=== PATIENT | female | born 1940 | race Caucasian/White ===

== ENCOUNTER 2023-11-22 08:22 | Outpatient (RCR) | payer SELFPAY | END 2023-11-22 23:59 | disposition home or self-care (01) | LOC: ROT 08:22 | PROVIDERS: ATTENDING PHYSICIAN Family Medicine | DX: Z02.4 Encounter for examination for driving license (principal) ==

== ENCOUNTER 2023-12-28 13:57 | Emergency (ER) | payer OTHER, MEDICARE, SELFPAY ==
[2023-12-28 14:05] VITALS: BP 177/93
--- NOTE | 2023-12-28 15:21 | ED.GENMED ---
History of Present Illness
General
Chief Complaint: Musculo-Skeletal Complaint
Source: patient
Time Seen by Provider: 12/28/23 15:07
Travel History
Have you had any contact with someone who has COVID-19?: No
Do you have any symptoms of coronavirus? Fever > 100 degrees, chills, cough, shortness of breath, sore throat, loss of taste or smell, muscle aches, or headache?: No
History of Present Illness
History of Present Illness:
83-year-old female with past medical history of GERD, asthma, hypothyroidism presenting to the emergency department for evaluation after she has been dealing with pain to her right shoulder since the end of June when she had an accidental fall.
Patient states that she has had pain to this area daily but it has been getting worse over the last few weeks prompting her to come to the ER today. Patient states she mainly came to the ER today because if she needed an MRI she knew she would need
an x-ray prior to getting the more advanced imaging. She has not seen anybody else medically for this injury. She has been taking Tylenol with some relief. She states shoulder abduction and forward flexion seem to bother her shoulder the most.
Past History
Past History
ED Past Medical History: Asthma, GERD and Hypothyroidism; Negative HTN
ED Past Surgical History: Gynecological, Orthopedic and Tonsilectomy
Social History
Tobacco: Non-smoker
Alcohol: Occasional
Drug: None
Personal:
Living: with family
Employment: Retired
Review of Systems
Review of Systems
All Other Systems: ROS reviewed and negative except as documented in HPI and ROS
Phy Exam
Physical Exam
Physical Exam:
GENERAL: Alert , in no apparent distress
EYE: conjunctiva clear
Head: Normocephalic atraumatic
NECK: Supple,
ENT: mmm.
LUNGS: no acute respiratory distress
NEUROLOGICAL: Alert and oriented
SKIN: Warm and dry, skin intact.
MUSCULOSKELETAL: Right upper extremity: No obvious deformity, erythema, edema, ecchymosis, abrasions or lacerations. Patient does allow for full active and passive range of motion of the right shoulder but states she gets pain at about 90 degrees
with forward flexion as well as abduction. There is some tenderness over the lateral aspect of the proximal humerus as well as within the posterior portion of the proximal scapula. Easily palpable radial pulse. Cap refill less than 2 seconds.
Sensation grossly intact to light touch throughout. Remainder of extremity is within normal limits and has normal range of motion without pain
PSYCH: Normal and appropriate interaction.
Course
Orders/Labs/Results
Orders:
Orders
12/28/23 14:06
Shoulder, Right, Trauma [CR Shoulder, Trauma - Right] Urgent
Comment:
Reason For Exam: shoulder injury in june
Vital Signs
Initial and Last Documented VS:
Initial Vital Signs
Temp Pulse Resp BP Pulse Ox
98.9 F 97 17 177/93 99
12/28/23 14:05 12/28/23 14:05 12/28/23 14:05 12/28/23 14:05 12/28/23 14:05
Last Documented Vital Signs
Temp Pulse Resp BP Pulse Ox
98.9 F 97 17 177/93 99
12/28/23 14:05 12/28/23 14:05 12/28/23 14:05 12/28/23 14:05 12/28/23 14:05
MDM/Problems Addressed
Differential Diagnosis Includes:
Sprain, contusion, minimal concern for fracture or dislocation given longevity. Labral injury, rotator cuff injury
MDM/Problems Addressed:
83-year-old female presenting emergency department for evaluation of right shoulder pain over the last few months. Symptoms not really any different today however patient states pain has been worsening over the last couple of weeks. X-ray findings
were noted for no acute fracture or dislocation but suspected osteopenia. Explained to patient that she would likely need to follow-up with orthopedics for further evaluation. Continue Tylenol for pain as needed as patient states she is unable to
take NSAIDs. She will be given information for orthopedics to follow-up and is otherwise stable for discharge home.
*Radiology
Radiology exam reviewed: preliminary read by ED provider (No fracture) and radiology read reviewed
*Pulse Oximetry
Patient hypoxic: no
*Critical Care Note
Total Time (30-74mins, 75-104mins- exclusive of procedures): Not Applicable
ED Attending Note
-
Portions of this chart may have been created with voice recognition software.� Occasional wrong word or��sound alike� substitutions may have occurred due to the inherent limitations of voice recognition software.
Discharge Plan
Departure
Patient Disposition: Home (Routine Discharge)
Date of Disposition: 12/28/23
Time of Disposition: 15:21
Patient with high blood pressure during this ER visit?: Yes
Discharge Problem:
Right shoulder pain
Instructions: Shoulder Pain ED
Prescriptions:
No Action
B Tonic 6
1 tab PO BID
Betoptic S 0.25 % Drops,Suspension
1 drp BOTH EYES BID
brinzolamide [Azopt] 1 % Drops,Suspension
1 drp BOTH EYES BID
psyllium Packet
1 packet PO TID
valacyclovir 500 mg Tablet
500 mg PO DAILYPRN PRN (Reason: fever sore)
cyanocobalamin (vitamin B-12) 500 mcg Tablet
500 mcg PO DAILY
pantoprazole 40 mg Tablet,Delayed Release (Dr/Ec)
40 mg PO BID
Premarin 0.625 mg/gram Cream
0.625 mg vaginal TH
Hold Instructions: Resume on 09/20/23. Only resume this medication if and only if your primary care provider and neurologist outpatient say you can resume this medication, as you have had a stroke
levothyroxine [Synthroid] 125 mcg Tablet
125 mcg PO DAILY AT 0700
Premarin 0.625 mg Tablet
0.625 mg PO DAILY
Hold Instructions: Resume on 09/20/23. Only resume this medication if and only if your primary care provider and neurologist outpatient say you can resume this medication, as you have had a stroke
docusate sodium [Colace] 100 mg Capsule
100 mg PO DAILY
albuterol sulfate [Ventolin HFA] 90 mcg/actuation Hfa Aerosol Inhaler
2 puff INHALATION DAILYPRN PRN (Reason: asthma)
doxycycline hyclate 20 mg Tablet
20 mg PO BID
Patient Comments:
07/23/23 filled on 07/04/23 #60
vitamin E 268 mg (400 unit) Capsule
268 mg PO DAILY
fluticasone propionate [Flovent HFA] 110 mcg/actuation Hfa Aerosol Inhaler
2 puff INHALATION DAILYPRN PRN (Reason: asthma)
erythromycin with ethanol [Erygel] 2 % Gel
1 applic TOPICAL BID
Patient Comments:
07/23/23 patient applies gel to face for rosacea
cyclosporine [Restasis] 0.05 % Dropperette
1 drp BOTH EYES BID
magnesium oxide 400 mg magnesium Tablet
400 mg PO DAILY
Protopic
1 drp ophthalmic (eye) BID
Rx Instructions:
both eyes
cyclosporine 0.05 % Dropperette
1 drp BOTH EYES BID Qty: 30 0RF
aspirin 81 mg Tablet,Delayed Release (Dr/Ec)
81 mg PO DAILY Qty: 30 3RF
docusate sodium 100 mg Capsule
100 mg PO BID Qty: 60 1RF
atorvastatin 10 mg Tablet
10 mg PO QPM Qty: 30 1RF
polyethylene glycol 3350 [HealthyLax] 17 gram Powder In Packet
17 g PO DAILY Qty: 100 1RF
clopidogrel 75 mg Tablet
75 mg PO DAILY 18 Days Qty: 18 0RF
Rx Instructions:
Start date is July 27, 2023
nifedipine 30 mg Tablet Extended Release
30 mg PO Q12H Qty: 60 1RF
sennosides [Senna Lax] 8.6 mg Tablet
8.6 mg PO BID Qty: 60 1RF
acetaminophen 650 mg Tablet Extended Release
1,000 mg PO BID Qty: 0 0RF
Referrals:
Antoine Cheng MD [Active] - (Please call for an appointment)
Interventions
Interventions:
*Risk Screen - Suicide Last Done: 12/28/23 14:05
*General Assessment Last Done: 12/28/23 14:05
*Neglect/Abuse Screening Last Done: 12/28/23 14:05
*ED COVID-19 Vaccine History Last Done: 12/28/23 14:05
Discharge Date and Time
Print Language: MACANESE
[2023-12-28 15:39] VITALS: BP 174/83
[2023-12-28 15:41] VITALS: BP 174/83
== END 2023-12-28 15:42 | disposition home or self-care (01) ==
LOC: EMR 13:57
PROVIDERS: EMERGENCY PHYSICIAN Emergency Medicine
DX: M25.511 Pain in right shoulder (principal); K21.9 Gastro-esophageal reflux disease without esophagitis; J45.909 Unspecified asthma, uncomplicated; E03.9 Hypothyroidism, unspecified
CPT/HCPCS: 99283; 73030